=== PATIENT | male | born 1970 | race African-American/Black ===

== ENCOUNTER 2024-01-18 01:05 | Emergency (ER) | payer SELFPAY ==
[~2024-01-18] VITALS: Ht 175.3 cm; Wt 73.0 kg
[2024-01-18 02:40] VITALS: O2SAT 97
[2024-01-18] MEDS: KETOROLAC 30MG/ML VIAL IM ONE (04:30)
[2024-01-18] MEDS ORDERED: LIDO700A15 TP (04:50)
[2024-01-18] MEDS ORDERED: NAPR-1176 MT (04:50)
[2024-01-18 05:53] VITALS: BP 117/68; PULSE 62; RESP 20; TEMP 36.50292; O2SAT 98
== END 2024-01-18 05:25 | disposition home or self-care (01) ==
LOC: ER 01:05
DX: M25.511 Pain in right shoulder (principal); Z90.49 Acquired absence of other specified parts of digestive tract
CPT/HCPCS: 99283; 73030; 96372; J1885